=== PATIENT | male | born 1970 | race Caucasian/White ===

== ENCOUNTER 2017-06-03 19:44 | Observation (INO) | payer BC ==
[2017-06-03] MEDS ORDERED: Aspirin 81 MG Tab.Chew PO ONE (20:14)
[2017-06-03] MEDS ORDERED: Sodium Chloride 0.9% 2.5 ML Syringe FLUSH PRN (20:14)
[2017-06-03] MEDS ORDERED: Sodium Chloride 0.9% 10 ML Syringe FLUSH PRN (20:14)
--- NOTE | 2017-06-03 20:19 | EDM.PDOC ---
ED HPI GENERAL MEDICAL PROBLEM - General Chief Complaint: Chest Pain Stated Complaint: CHEST PAIN Time Seen by Provider: 06/03/17 20:01 - History of Present Illness INITIAL COMMENTS - FREE TEXT/NARRATIVE: HISTORY AND PHYSICAL: History of present illness: The patient is a 47-year-old male who follows at [facility] and has a history of hypertension and [id number] diabetes and hypothyroidism and presents with complaints of episodic left chest pain that is sharp in nature. The patient says that he had 3 episodes yesterday when he was doing his usual activities and he has never had it before. He has no upper respiratory symptoms no shortness of breath no cough no vomiting no abdominal pain and no back pain. He says that he slept fine last evening and did not wake with any discomfort and today starting a couple of hours ago he had 3 more of these episodes each lasting only a few seconds in duration and located at the left anterior chest wall beneath the breast. He says is a chronic history of a "rib being out of place" on the left upper area that he sees a chiropractor for and that his chronic pain in this other discomfort is different. The sharp pain doesn't radiate and is not associated with diaphoresis or shortness of breath. Patient works doing construction and form work and doesn't get chest pain with those activities. He has no leg pain or swelling. It is stress test 2 years ago that was normal. The patient denies any social history except occasional alcohol use and has no family history of cardiac problems Review of systems: As per history of present illness and below otherwise all systems reviewed and negative. Past medical history: As per history of present illness and as reviewed below otherwise noncontributory. Surgical history: As per history of present illness and as reviewed below otherwise noncontributory. Social history: No reported history of drug or alcohol abuse. Family history: As per history of present illness and as reviewed below otherwise noncontributory. Physical exam: Gen.: Well-developed overweight man who is nontoxic and vital signs reviewed by me. When I asked him about his blood pressure here he says that on the higher side for him. HEENT: Atraumatic, normocephalic, negative for conjunctival pallor or scleral icterus, mucous membranes moist, throat clear, neck supple, nontender, trachea midline. Lungs: Clear to auscultation, breath sounds equal bilaterally, chest some mild tenderness just to the left of the sternum high on the chest wall which she says is the area of his chronic rib pain. No crepitus defects or deformities and no lateral left chest wall discomfort. Heart: S1S2, regular, negative for clicks, rubs, or JVD. Abdomen: Soft, nondistended, nontender. Negative for masses or hepatosplenomegaly. NABS Pelvis: Stable nontender. Genitourinary: Deferred. Rectal: Deferred. Extremities: Atraumatic, negative for cords or calf pain. Neurovascular unremarkable. No pedal edema or leg asymmetry Neuro: Awake, alert, oriented. Cranial nerves II through XII unremarkable. Cerebellum unremarkable. Motor and sensory unremarkable throughout. Exam nonfocal. Diagnostics: EKG CBC CMP troponin chest x-ray Therapeutics: IV O2 monitor aspirin 2124: Patient has not had any chest pain while in the ER and he his are aware of all testing results. I've also discussed this case with Dr. Sher who is here in the emergency department seeing another patient and he accepts the patient for observation admission. Impression: Episodic atypical chest pain rule out ACS Definitive disposition and diagnosis as appropriate pending reevaluation and review of above. chest Pain Score (Numeric/FACES): 4 - Related Data Allergies Allergy/AdvReac Type Severity Reaction Status Date / Time Penicillins Allergy Cannot Verified 06/03/17 20:02 Remember Home Meds: Home Meds Ascorbate Calcium [Vitamin C] 1 tab PO DAILY 02/16/14 [History] Aspirin [Halfprin] 1 tab PO BEDTIME 02/16/14 [History] Levothyroxine Sodium [Synthroid] 1 tab PO ACBRK 02/16/14 [History] Lisinopril/Hydrochlorothiazide [Lisinopril-Hctz 20-12.5 mg Tab] 1 tab PO BRK [History] Multivitamin [Multi Vitamin Daily] 1 tab PO DAILY 02/16/14 [History] Tamsulosin HCl [Tamsulosin HCl] 1 tab PO BEDTIME 02/16/14 [History] Levothyroxine Sodium [Synthroid] 150 mcg PO DAILY 06/03/17 [History] Losartan/Hydrochlorothiazide [Losartan-HCTZ 100-12.5 MG] 0 each PO DAILY [History] Ranitidine [Zantac] 150 mg PO BID 06/03/17 [History] metFORMIN HCl [Fortamet] 1,000 mg PO DAILY 06/03/17 [History] Past Medical History - Past Health History Medical/Surgical History: Denies Medical/Surgical History Cardiovascular History: Reports: Hypertension Gastrointestinal History: Reports: GERD Endocrine/Metabolic History: Reports: Diabetes, Type II, Hypothyroidism - Past Surgical History GI Surgical History: Reports: Cholecystectomy Social & Family History - Family History Family Medical History: Noncontributory - Tobacco Use Smoking Status *Q: Never Smoker - Alcohol Use Days Per Week of Alcohol Use: 1 Number of Drinks Per Day: 1 Total Drinks Per Week: 1 - Recreational Drug Use Recreational Drug Use: No Drug Use in Last 12 Months: No ED ROS GENERAL - Review of Systems Review Of Systems: ROS reveals no pertinent complaints other than HPI. ED EXAM, GENERAL - Physical Exam Exam: See Below (See dictation) Course - Vital Signs Last Recorded V/S: Last Vital Signs Temp 37.1 C 06/03/17 19:44 Pulse 94 06/03/17 19:44 Resp 20 06/03/17 19:44 BP 148/88 H 06/03/17 19:44 Pulse Ox 96 06/03/17 19:44 - Orders/Labs/Meds Orders: Active Orders 24 hr Category Date Time Status Patient Status [ADT] Stat ADT 06/03/17 21:31 Ordered Cardiac Monitoring [RC] . DIRECTED Care 06/03/17 19:59 Active Cardiac Monitoring [RC] . DIRECTED Care 06/03/17 20:14 Active EKG Documentation Completion [RC] STAT Care 06/03/17 20:14 Active Oxygen Therapy, ED [RC] ASDIRECTED Care 06/03/17 20:14 Active Pulse Oximetry [RC] ASDIRECTED Care 06/03/17 20:14 Active Chest 1V Frontal [CR] Stat Exams 06/03/17 20:14 Taken Sodium Chloride 0.9% [Saline Flush] Med 06/03/17 20:14 Active 10 ml FLUSH ASDIRECTED PRN Sodium Chloride 0.9% [Saline Flush] Med 06/03/17 20:14 Active 2.5 ml FLUSH ASDIRECTED PRN Saline Lock Insert [OM.PC] Stat Oth 06/03/17 20:14 Ordered Medication Orders Sodium Chloride (Saline Flush) 10 ml FLUSH ASDIRECTED PRN PRN Reason: Keep Vein Open Sodium Chloride (Saline Flush) 2.5 ml FLUSH ASDIRECTED PRN PRN Reason: Keep Vein Open Labs: Laboratory Tests 06/03/17 06/03/17 Range/Units 20:20 20:20 WBC 7.52 (4.0-11.0) K/uL RBC 4.55 (4.50-5.90) M/uL Hgb 14.5 (13.0-17.0) g/dL Hct 41.7 (38.0-50.0) % MCV 91.6 (80.0-98.0) fL MCH 31.9 (27.0-32.0) pg MCHC 34.8 (31.0-37.0) g/dL RDW Std Deviation 40.6 (28.0-62.0) fl RDW Coeff of Riki 12 (11.0-15.0) % Plt Count 241 (150-400) K/uL MPV 9.90 (7.40-12.00) fL Neut % (Auto) 55.0 (48.0-80.0) % Lymph % (Auto) 29.7 (16.0-40.0) % [place] % (Auto) 10.5 (0.0-15.0) % Eos % (Auto) 4.1 (0.0-7.0) % Baso % (Auto) 0.7 (0.0-1.5) % Neut # (Auto) 4.1 (1.4-5.7) K/uL Lymph # (Auto) 2.2 (0.6-2.4) K/uL [place] # (Auto) 0.8 (0.0-0.8) K/uL Eos # (Auto) 0.3 (0.0-0.7) K/uL Baso # (Auto) 0.1 (0.0-0.1) K/uL Nucleated RBC % 0.0 /100WBC Nucleated RBCs # 0 K/uL Sodium 138 (136-146) mmol/L Potassium 3.8 (3.5-5.1) mmol/L Chloride 102 (98-110) mmol/L Carbon Dioxide 25 (21-31) mmol/L BUN 14 (6.0-23.0) mg/dL Creatinine 0.9 (0.6-1.5) mg/dL Est Cr Clr Drug Dosing TNP Estimated GFR (MDRD) > 60.0 ml/min Glucose 157 H (60-110) mg/dL Calcium 9.3 (8.8-10.8) mg/dL Total Bilirubin 0.5 (0.1-1.5) mg/dL AST 22 (5-40) IU/L ALT 47 (8-54) IU/L Alkaline Phosphatase 75 (40-150) Troponin I < 0.10 (0.0-0.29) NG/ML Total Protein 7.6 (6.0-8.0) g/dL Albumin 4.3 (3.5-5.0) g/dL Globulin 3.3 (2.0-3.5) g/dL Albumin/Globulin Ratio 1.3 (1.3-2.8) Meds: Medications Generic Name Dose Route Start Last Admin Trade Name Freq PRN Reason Stop Dose Admin Sodium Chloride 10 ml 06/03/17 20:14 Saline Flush FLUSH ASDIRECTED PRN Keep Vein Open Sodium Chloride 2.5 ml 06/03/17 20:14 Saline Flush FLUSH ASDIRECTED PRN Keep Vein Open Discontinued Medications Generic Name Dose Route Start Last Admin Trade Name Freq PRN Reason Stop Dose Admin Aspirin 324 mg 06/03/17 20:14 06/03/17 20:22 Aspirin PO 06/03/17 20:15 324 mg ONETIME ONE Administration Departure - Departure Time of Disposition: 21:32 Disposition: Refer to Observation Condition: Good Clinical Impression: Atypical chest pain - Discharge Information Referrals: Hai Leach MD [Primary Care Provider] - Forms: ED Department Discharge - My Orders Last 24 Hours: My Active Orders 06/03/17 20:14 Cardiac Monitoring [RC] . DIRECTED EKG Documentation Completion [RC] STAT Oxygen Therapy, ED [RC] ASDIRECTED Pulse Oximetry [RC] ASDIRECTED Chest 1V Frontal [CR] Stat Sodium Chloride 0.9% [Saline Flush] 10 ml FLUSH ASDIRECTED PRN Sodium Chloride 0.9% [Saline Flush] 2.5 ml FLUSH ASDIRECTED PRN Saline Lock Insert [OM.PC] Stat 06/03/17 21:31 Patient Status [ADT] Stat - Assessment/Plan Last 24 Hours: My Active Orders 06/03/17 20:14 Cardiac Monitoring [RC] . DIRECTED EKG Documentation Completion [RC] STAT Oxygen Therapy, ED [RC] ASDIRECTED Pulse Oximetry [RC] ASDIRECTED Chest 1V Frontal [CR] Stat Sodium Chloride 0.9% [Saline Flush] 10 ml FLUSH ASDIRECTED PRN Sodium Chloride 0.9% [Saline Flush] 2.5 ml FLUSH ASDIRECTED PRN Saline Lock Insert [OM.PC] Stat 06/03/17 21:31 Patient Status [ADT] Stat
[2017-06-03 20:48] LABS: CHLORIDE,CL 102 mmol/L (98-110); SODIUM,NA 138 mmol/L (136-146)
[2017-06-03] MEDS ORDERED: Ondansetron 4 MG/2 ML SDV IVPUSH PRN (21:40)
[2017-06-03] MEDS ORDERED: Acetaminophen 325 MG Tab PO PRN (21:40)
--- NOTE | 2017-06-03 21:59 | PCM.HP ---
H&P History of Present Illness - General Admit Problem/Dx: Admission Diagnosis/Problem Admission Diagnosis/Problem Chest pain - History of Present Illness Initial Comments - Free Text/Narative: 47 yo male with pmh of DM, hypothyroidism and hypertension who presented with several day history of chest pain. He describes the pain as sharp left sided chest pain that is associated with hand and face numbness. He denies any weakness, shortness of breath or diaphoresis. chest Pain Score (Numeric/FACES): 4 - Related Data Allergies/Adverse Reactions: Allergies Allergy/AdvReac Type Severity Reaction Status Date / Time Penicillins Allergy Cannot Verified 06/03/17 20:02 Remember Home Medications: Home Meds Ascorbate Calcium [Vitamin C] 1 tab PO DAILY 02/16/14 [History] Aspirin [Halfprin] 1 tab PO BEDTIME 02/16/14 [History] Multivitamin [Multi-Vitamin Daily] 1 tab PO DAILY 02/16/14 [History] Tamsulosin HCl 1 tab PO BEDTIME 02/16/14 [History] Levothyroxine Sodium [Synthroid] 150 mcg PO DAILY 06/03/17 [History] Losartan/Hydrochlorothiazide [Losartan-HCTZ 50-12.5 MG] 12.5 - 50 mg PO DAILY [History] Ranitidine [Zantac] 150 mg PO BID 06/03/17 [History] metFORMIN HCl [Fortamet] 1,000 mg PO DAILY 06/03/17 [History] Aspirin [Low Dose Aspirin EC] 81 mg PO DAILY #30 tablet. 06/04/17 [Rx] Past Medical History - Past Health History Medical/Surgical History: Denies Medical/Surgical History Cardiovascular History: Reports: Hypertension Gastrointestinal History: Reports: GERD Endocrine/Metabolic History: Reports: Diabetes, Type II, Hypothyroidism - Past Surgical History GI Surgical History: Reports: Cholecystectomy Social & Family History - Family History Family Medical History: Noncontributory - Tobacco Use Smoking Status *Q: Never Smoker - Alcohol Use Days Per Week of Alcohol Use: 1 Number of Drinks Per Day: 1 Total Drinks Per Week: 1 - Recreational Drug Use Recreational Drug Use: No Drug Use in Last 12 Months: No H&P Review of Systems - Review of Systems: Review Of Systems: ROS reveals no pertinent complaints other than HPI. Exam - Exam Exam: See Below - Vital Signs Vital Signs: Last Vital Signs Temp 36.4 C 06/03/17 21:50 Pulse 78 06/03/17 21:50 Resp 18 06/03/17 21:50 BP 129/86 06/03/17 21:50 Pulse Ox 95 06/03/17 21:50 Weight: 105 kg - Exam General: Alert, Oriented Neck: Supple Lungs: Clear to Auscultation, Normal Respiratory Effort Cardiovascular: Regular Rate, Regular Rhythm GI/Abdominal Exam: Normal Bowel Sounds, Soft, Non-Tender Extremities: Non-Tender, No Pedal Edema Skin: Warm, Dry, Intact Neurological: Cranial Nerves Intact, Strength Equal Bilateral, Normal Speech, Sensation Intact. No: Focal Deficit - Patient Data Lab Results Last 24 hrs: Laboratory Results - last 24 hr 06/03/17 06/03/17 Range/Units 20:20 20:20 WBC 7.52 (4.0-11.0) K/uL RBC 4.55 (4.50-5.90) M/uL Hgb 14.5 (13.0-17.0) g/dL Hct 41.7 (38.0-50.0) % MCV 91.6 (80.0-98.0) fL MCH 31.9 (27.0-32.0) pg MCHC 34.8 (31.0-37.0) g/dL RDW Std Deviation 40.6 (28.0-62.0) fl RDW Coeff of Riki 12 (11.0-15.0) % Plt Count 241 (150-400) K/uL MPV 9.90 (7.40-12.00) fL Neut % (Auto) 55.0 (48.0-80.0) % Lymph % (Auto) 29.7 (16.0-40.0) % [place] % (Auto) 10.5 (0.0-15.0) % Eos % (Auto) 4.1 (0.0-7.0) % Baso % (Auto) 0.7 (0.0-1.5) % Neut # (Auto) 4.1 (1.4-5.7) K/uL Lymph # (Auto) 2.2 (0.6-2.4) K/uL [place] # (Auto) 0.8 (0.0-0.8) K/uL Eos # (Auto) 0.3 (0.0-0.7) K/uL Baso # (Auto) 0.1 (0.0-0.1) K/uL Nucleated RBC % 0.0 /100WBC Nucleated RBCs # 0 K/uL Sodium 138 (136-146) mmol/L Potassium 3.8 (3.5-5.1) mmol/L Chloride 102 (98-110) mmol/L Carbon Dioxide 25 (21-31) mmol/L BUN 14 (6.0-23.0) mg/dL Creatinine 0.9 (0.6-1.5) mg/dL Est Cr Clr Drug Dosing TNP Estimated GFR (MDRD) > 60.0 ml/min Glucose 157 H (60-110) mg/dL Calcium 9.3 (8.8-10.8) mg/dL Total Bilirubin 0.5 (0.1-1.5) mg/dL AST 22 (5-40) IU/L ALT 47 (8-54) IU/L Alkaline Phosphatase 75 (40-150) Troponin I < 0.10 (0.0-0.29) NG/ML Total Protein 7.6 (6.0-8.0) g/dL Albumin 4.3 (3.5-5.0) g/dL Globulin 3.3 (2.0-3.5) g/dL Albumin/Globulin Ratio 1.3 (1.3-2.8) Result Diagrams: 06/03/17 20:20 06/03/17 20:20 *Q Meaningful Use (ADM) - VTE *Q VTE Criteria *Q: - Stroke *Q Stroke Criteria *Q: - AMI *Q AMI Criteria *Q: Problem List Initiated/Reviewed/Updated: Yes Orders Last 24hrs: Active Orders 24 hr Category Date Time Status Patient Status [ADT] Stat ADT 06/03/17 21:31 Active Antiembolic Devices [RC] PER UNIT ROUTINE Care 06/03/17 21:42 Ordered Cardiac Monitoring [RC] . DIRECTED Care 06/03/17 19:59 Active Cardiac Monitoring [RC] . DIRECTED Care 06/03/17 20:14 Active EKG Documentation Completion [RC] STAT Care 06/03/17 20:14 Active Oxygen Therapy [RC] PRN Care 06/03/17 21:40 Ordered Oxygen Therapy, ED [RC] ASDIRECTED Care 06/03/17 20:14 Active Pulse Oximetry [RC] ASDIRECTED Care 06/03/17 20:14 Active Up ad Gretta [RC] ASDIRECTED Care 06/03/17 21:40 Ordered VTE/DVT Education [RC] PER UNIT ROUTINE Care 06/03/17 21:40 Ordered Vital Signs [RC] Q4H Care 06/03/17 21:40 Ordered [place] [employer] Diet [DIET] Diet 06/03/17 Breakfast Ordered Chest 1V Frontal [CR] Stat Exams 06/03/17 20:14 Taken TROPONIN I [CHEM] Q6H Lab 06/04/17 04:00 Ordered TROPONIN I [CHEM] Q6H Lab 06/04/17 10:00 Ordered Acetaminophen [Tylenol] Med 06/03/17 21:40 Ordered 650 mg PO Q4H PRN Enoxaparin [Lovenox] Med 06/04/17 09:00 Ordered 40 mg SUBCUT DAILY Ondansetron [Zofran] Med 06/03/17 21:40 Ordered 4 mg IVPUSH Q4H PRN Sodium Chloride 0.9% [Saline Flush] Med 06/03/17 20:14 Active 10 ml FLUSH ASDIRECTED PRN Sodium Chloride 0.9% [Saline Flush] Med 06/03/17 20:14 Active 2.5 ml FLUSH ASDIRECTED PRN Saline Lock Insert [OM.PC] Stat Oth 06/03/17 20:14 Ordered Sequential Compression Device [OM.PC] Per Unit Routine Oth 06/03/17 21:41 Ordered Resuscitation Status Routine Resus Stat 06/03/17 21:40 Ordered Medication Orders Acetaminophen (Tylenol) 650 mg PO Q4H PRN PRN Reason: Pain (Mild 1-3)/fever Enoxaparin Sodium (Lovenox) 40 mg SUBCUT DAILY JOSE GUADALUPE Ondansetron HCl (Zofran) 4 mg IVPUSH Q4H PRN PRN Reason: Nausea Sodium Chloride (Saline Flush) 10 ml FLUSH ASDIRECTED PRN PRN Reason: Keep Vein Open Sodium Chloride (Saline Flush) 2.5 ml FLUSH ASDIRECTED PRN PRN Reason: Keep Vein Open Assessment/Plan Comment:: 47 yo male admitted for chest pain. We will monitor overnight on telemetry and trend cardiac enzymes.
[2017-06-04] MEDS: Insulin Aspart 100 Units/ML 3 ML Pen SUBCUT SCH ×2 (06:30→11:49)
--- NOTE | 2017-06-04 08:59 | CR ---
EXAM DATE: 06/03/17 PATIENT'S AGE: 47 Patient: [facility] [place] Facility: [place], [place] Site . Site : 1970 Study: XRay Chest [id number] 8:40:30 PM Ordering Physician: Nurys Ardon Final Report: INDICATION: Chest pain TECHNIQUE: Chest radiograph 1 view COMPARISON: None FINDINGS: Moderate degradation of image quality noted due to body habitus. Mediastinum: The cardiac silhouette is normal in appearance and size. Mediastinum is within normal limits. Lungs: Both lungs are unremarkable in appearance. No sign of pleural effusion. No pneumothorax is seen. Bones and soft tissue: No significant findings. IMPRESSION: 1. No acute cardiopulmonary disease seen. Dictated by: Aris Sanchez MD @ 06/03/2017 20:49:04 (Electronic Signature) Report Signed by Proxy. [facility]OO[facility] MEMORIAL HOSPITALEdilia
[2017-06-04] MEDS ORDERED: Enoxaparin 40 MG/0.4 ML Syringe SUBCUT SCH (09:00)
[2017-06-04] MEDS ORDERED: Gadobenate Dimeglumine 529 MG/ML 20 ML SDV IVPUSH STA (13:27)
--- NOTE | 2017-06-04 14:12 | PCM.DCSUM1 ---
Discharge Summary - Hospital Course Free Text/Narrative:: 47 yo male with pmh of DM, hypothyroidism and hypertension who presented with several day history of chest pain. He describes the pain as sharp left sided chest pain that is associated with hand and face numbness which concerned him. The bilateral facial numbness lasted only few seconds. His EKG did not reveal any acute ST changes. His troponin x 3 negative. He was monitored in telemetry which did not reveal any arrhythmia. His neurological findings were normal. Brain MRI was performed due to facial numbness which was normal. Brain MRI negative. He is discharged in stable condition. He did not have any chest pain or facial numbness. He is given a script for outpatient stress test. He is to follow up with Dr. Olivera PCP in a week. - Discharge Data Discharge Date: 06/04/17 Discharge Disposition: Home, Self-Care 01 Condition: Good - Patient Instructions Diet: Heart Healthy Diet, Diabetic Diet Activity: As Tolerated Driving: Do Not Drive Showering/Bathing: May Shower Notify Provider of: Fever, Increased Pain, Swelling and Redness, Drainage, Nausea and/or Vomiting - Discharge Plan Prescriptions/Med Rec: Aspirin [Low Dose Aspirin EC] 81 mg PO DAILY #30 tablet. Home Medications: Home Meds Ascorbate Calcium [Vitamin C] 1 tab PO DAILY 02/16/14 [History] Aspirin [Halfprin] 1 tab PO BEDTIME 02/16/14 [History] Multivitamin [Multi-Vitamin Daily] 1 tab PO DAILY 02/16/14 [History] Tamsulosin HCl 1 tab PO BEDTIME 02/16/14 [History] Levothyroxine Sodium [Synthroid] 150 mcg PO DAILY 06/03/17 [History] Losartan/Hydrochlorothiazide [Losartan-HCTZ 50-12.5 MG] 12.5 - 50 mg PO DAILY [History] Ranitidine [Zantac] 150 mg PO BID 06/03/17 [History] metFORMIN HCl [Fortamet] 1,000 mg PO DAILY 06/03/17 [History] Aspirin [Low Dose Aspirin EC] 81 mg PO DAILY #30 tablet. 06/04/17 [Rx] Patient Handouts: Chest Wall Pain, [id number], Aspirin, ASA oral tablets Referrals: Hai Leach MD [Primary Care Provider] - 06/11/17 3:00 pm (Please come in 10 minutes prior to appointment time. ) - General Info Date of Service: 06/04/17 - Review of Systems General: Reports: No Symptoms HEENT: Reports: No Symptoms Pulmonary: Reports: No Symptoms Cardiovascular: Reports: Chest Pain (improved) Gastrointestinal: Reports: No Symptoms Genitourinary: Reports: No Symptoms Musculoskeletal: Reports: No Symptoms Skin: Reports: No Symptoms Neurological: Reports: No Symptoms, Other (facial numbness improved) Psychiatric: Reports: No Symptoms - Patient Data Vitals - Most Recent: Last Vital Signs Temp 98.2 F 06/04/17 11:00 Pulse 82 06/04/17 11:00 Resp 16 06/04/17 11:00 BP 138/78 06/04/17 11:00 Pulse Ox 96 06/04/17 11:00 Weight - Most Recent: 105.5 kg I&O - Last 24 hours: Intake & Output 06/03/17 06/04/17 06/04/17 22:59 06:59 14:59 Intake Total 480 Output Total 800 Balance -320 Lab Results - Last 24 hrs: Laboratory Results - last 24 hr 06/04/17 06/04/17 06/04/17 Range/Units 01:53 06:10 08:06 POC Glucose 147 H (60-110) mg/dL Troponin I < 0.10 < 0.10 (0.0-0.29) NG/ML Triglycerides (10-190) mg/dL Cholesterol (131-240) mg/dL LDL Cholesterol, Calc (60-180) mg/dL VLDL Cholesterol (5-55) mg/dL HDL Cholesterol (40-80) mg/dL Cholesterol/HDL Ratio (3.3-6.0) 06/04/17 06/04/17 Range/Units 08:09 11:22 POC Glucose 146 H (60-110) mg/dL Troponin I (0.0-0.29) NG/ML Triglycerides 164 (10-190) mg/dL Cholesterol 206 (131-240) mg/dL LDL Cholesterol, Calc 131 (60-180) mg/dL VLDL Cholesterol 33 (5-55) mg/dL HDL Cholesterol 42 (40-80) mg/dL Cholesterol/HDL Ratio 4.9 (3.3-6.0) Med Orders - Current: Current Medications Acetaminophen (Tylenol) 650 mg PO Q4H PRN PRN Reason: Pain (Mild 1-3)/fever Last Admin: 06/04/17 11:46 Dose: 650 mg Enoxaparin Sodium (Lovenox) 40 mg SUBCUT DAILY [facility] Last Admin: 06/04/17 08:15 Dose: 40 mg Insulin Aspart (Novolog) 0 unit SUBCUT TIDAC JOSE GUADALUPE PRN Reason: Protocol Last Admin: 06/04/17 11:49 Dose: Not Given Ondansetron HCl (Zofran) 4 mg IVPUSH Q4H PRN PRN Reason: Nausea Sodium Chloride (Saline Flush) 10 ml FLUSH ASDIRECTED PRN PRN Reason: Keep Vein Open Sodium Chloride (Saline Flush) 2.5 ml FLUSH ASDIRECTED PRN PRN Reason: Keep Vein Open Discontinued Medications Aspirin (Aspirin) 324 mg PO ONETIME ONE Stop: 06/03/17 20:15 Last Admin: 06/03/17 20:22 Dose: 324 mg Gadobenate Dimeglumine (Multihance) 20 ml IVPUSH ONETIME STA Stop: 06/04/17 13:28 Last Admin: 06/04/17 13:31 Dose: 18 ml - Exam General: Reports: Alert, Oriented, Cooperative HEENT: Reports: Pupils Equal, EOMI Neck: Reports: Supple Lungs: Reports: Clear to Auscultation, Normal Respiratory Effort Cardiovascular: Reports: Regular Rate, Regular Rhythm GI/Abdominal Exam: Normal Bowel Sounds, Soft Back Exam: Reports: Normal Inspection Extremities: Normal Inspection Skin: Reports: Warm, Dry, Intact Neurological: Reports: No New Focal Deficit Psy/Mental Status: Reports: Alert, Normal Affect, Normal Mood *Q Meaningful Use (DIS) - VTE *Q VTE Criteria *Q: - Stroke *Q Stroke Criteria *Q: - AMI *Q AMI Criteria *Q:
--- NOTE | 2017-06-05 09:35 | MR ---
EXAM DATE: 06/03/17 PATIENT'S AGE: 47 Patient: [facility] Facility: [place], [place] Site . Site : 1970 Study: MRI Head W/ and W/O Cont [id number]/2017 1:53:12 PM Ordering Physician: Christos Bautista Final Report: Indication: Left hand and face numbness. Technique: Multiplanar multisequence noncontrast MR images were obtained through the brain. Comparison: None. Findings: The ventricles and sulci are within normal limits for patient age. No mass effect or midline shift. No parenchymal signal abnormalities are identified. No intracranial hemorrhage or pathologic extra-axial fluid collection. No areas of diffusion restriction are identified to suggest acute infarction. Incidentally noted partially empty sella. The major arterial flow voids of the skullbase are preserved. The globes are symmetric in size and signal intensity. Minimal mucosal thickening in the ethmoid and left frontal sinuses. The mastoid air cells are clear. Impression: 1. No acute infarction, mass effect, or intracranial hemorrhage. Dictated by Fabio Hoff MD @ Jun 04 2017 1:58PM (Electronic Signature) Report Signed by Proxy. S[facility]INA
== END 2017-06-04 15:25 | disposition home or self-care (01) ==
LOC: MW.ED 19:44 → MW.MS 21:31 → UNDODISOB 06-04 15:25
PROVIDERS: ADMIT Internal Medicine; ATTEND Internal Medicine
DX: R07.9 Chest pain, unspecified (principal); I10 Essential (primary) hypertension; K21.9 Gastro-esophageal reflux disease without esophagitis; E11.9 Type 2 diabetes mellitus without complications; E03.9 Hypothyroidism, unspecified; Z79.84 Long term (current) use of oral hypoglycemic drugs; Z79.82 Long term (current) use of aspirin; Z79.899 Other long term (current) drug therapy; R20.0 Anesthesia of skin
CPT/HCPCS: 36415; 70553; 71010; 80053; 80061; 82962; 84484; 85025; 93005; 96372; 99285; A9270; A9577; G0378; J1650; 99284

== ENCOUNTER 2022-07-01 10:03 | Day surgery (SDC) | payer BC ==
[~2022-07-01 10:03] MED LIST: Lactated Ringers 1,000 ML IV SCH; Sodium Chloride 0.9% 10 ML Syringe FLUSH PRN; Sodium Chloride 0.9% 2.5 ML Syringe FLUSH PRN; Sodium Chloride 0.9% 20 ML SDV IV PRN
[2022-07-01] MEDS ORDERED: Propofol 200 MG/20 ML SDV ONE (10:31)
== END 2022-07-01 12:45 | disposition home or self-care (01) ==
LOC: MW.SDS 10:03
PROVIDERS: ATTEND Surgery
DX: Z12.11 Encounter for screening for malignant neoplasm of colon (principal); I10 Essential (primary) hypertension; E03.9 Hypothyroidism, unspecified; G47.00 Insomnia, unspecified; E11.9 Type 2 diabetes mellitus without complications; E66.9 Obesity, unspecified; F41.9 Anxiety disorder, unspecified; Z68.31 Body mass index [BMI] 31.0-31.9, adult; Z88.0 Allergy status to penicillin; Z79.899 Other long term (current) drug therapy; Z79.82 Long term (current) use of aspirin; Z98.890 Other specified postprocedural states; Z90.49 Acquired absence of other specified parts of digestive tract; Z79.890 Hormone replacement therapy
CPT/HCPCS: 45378; 82947; J2704; J7120; 00812